=== PATIENT | female | born 1995 | race African-American/Black ===

== ENCOUNTER 2017-02-09 16:37 | Emergency (ER) | payer OTHER ==
[~2017-02-09] VITALS: Ht 157.5 cm; Wt 50.0 kg
[2017-02-09 16:42] VITALS: BP 137/85; PULSE 84; RESP 20; TEMP 97; O2SAT 98
--- NOTE | 2017-02-09 17:44 | PD ---
HPI . right arm laceration Chief Complaint: Skin Problem Time Seen by Provider: 17:20 Travel History International Travel<30 days: No Contact w/Intl Traveler<30days: No Traveled to known affect area: No History of Present Illness HPI 21-year-old female here with right arm laceration. Patient hit a glass window sustaining 2 lacerations to her right forearm. She tells me she is up-to-date on her tetanus shot. She has no other issues. [facility] Past Medical History Medical History: Denies Significant Hx Tetanus Vaccination: Unknown Influenza Vaccination: No ?: Not Past Surgical History Surgical History: No Previous Surgery Social History Alcohol Use: No Tobacco Use: No Substance Use: Yes (MARIJUANA) Allergies-Medications (Allergen,Severity, Reaction): Coded Allergies: Sulfa (Sulfonamide Antibiotics) (Verified Allergy, Severe, HIVES, 02/09/17) Reported Meds & Prescriptions Reported Meds & Active Scripts Active No Active Prescriptions or Reported Medications Review of Systems General / Constitutional: No: Fever Eyes: No: Visual changes HENT: No: Headaches Cardiovascular: No: Chest Pain or Discomfort Respiratory: No: Shortness of Breath Gastrointestinal: No: Abdominal Pain Genitourinary: No: Dysuria Musculoskeletal: No: Pain Skin: Positive Other (laceration right forearm ), No Rash Neurologic: No: Weakness Psychiatric: No: Depression Endocrine: No: Polydipsia Hematologic/Lymphatic: No: Easy Bruising Physical Exam Narrative GENERAL: AAO x 3, no acute distress, Well-nourished, well-developed patient. SKIN: Warm and dry. No visible rashes or bruising. right forearm two lacerations approximately 6.5 cm to the anterior surface and 5 cm to the ventral surface HEAD: Normocephalic and atraumatic. EYES: No scleral icterus. No injection or drainage. ENT: No nasal drainage noted. Mucous membranes pink. Airway patent. NECK: Supple, trachea midline. No JVD. CARDIOVASCULAR: Regular rate and rhythm without murmurs, gallops, or rubs. RESPIRATORY: Breath sounds equal bilaterally. No accessory muscle use. No rhonchi or rales. GASTROINTESTINAL: visual inspection normal EXTREMITIES: No cyanosis or edema. all digits of right hand move normally BACK: Nontender without obvious deformity. No CVA tenderness. NEURO: CN II-12 intact, dry pan feeder strength normal b/l, UE and LE 5/5, no focal deficits PSYCH: AAO x 3, normal affect. Data Data Last Documented VS Vital Signs Date Time Temp Pulse Resp B/P (MAP) Pulse Ox O2 Delivery O2 Flow Rate FiO2 02/09/17 16:42 97.0 84 20 137/85 (102) 98 Room Air Orders Orders Forearm (2vws) (02/09/17 17:08) Lidocaine 1% Inj (50 Ml) (Xylocaine 1% I (02/09/17 17:45) [facility] Medical Decision Making Medical Screen Exam Complete: Yes Emergency Medical Condition: Yes Medical Record Reviewed: Yes Differential Diagnosis forearm laceration, possible foreign body, less likely vessel injury Narrative Course 21 yr old female here with two lacerations to the right forearm. She hit a glass window. Possibility of fb with window type. Xray ordered. Last Impressions Radius/Ulna X-Ray 02/09/17 1708 Signed Impressions: Service Date/Time: Thursday, February 09, 2017 17:38 - CONCLUSION: Negative for radiopaque foreign body. Glass can be radiolucent. Oswaldo Murray MD FACR Joanna KILGORE, performed laceration repair. Please refer to her note for procedure details. Patient tolerated without incident. one laceration required 11 on the anterior forearm dorsum laceration with 7 sutures Diagnosis Primary Impression: Forearm laceration Qualified Codes: S51.811A - Laceration without foreign body of right forearm, initial encounter Patient Instructions: General Instructions Additional Instructions: Keep area clean and dry. Use gauze as we discussed and change 1-2 times a day. Watch for signs of infection: fever, redness, swelling, warmth, pus or drainage , red streaks around the cut, and increased pain from the area. If you received a tetanus shot, you may experience tenderness at the injection site. This is normal. You have a total of 18 sutures between the two lacerations. The sutures will need to be removed in 10-14 days. Please follow up with your primary care provider or return to the emergency department for removal. Med/Other Pt SpecificInfo: No Change to Meds Scripts No Active Prescriptions or Reported Meds Disposition: 01 DISCHARGE HOME Condition: Stable Laxmi Mckeon Feb 09, 2017 17:43
[2017-02-09] MEDS ORDERED: LIDOCAINE HCL 1% 50 ML VIAL INFIL ONE (17:45)
--- NOTE | 2017-02-09 17:52 | RADRPT ---
EXAM DATE/TIME: 02/09/2017 17:38 [facility] COMPARISON: No previous studies available for comparison. INDICATIONS : Right forearm laceration, possible foreign body, glass. MEDICAL HISTORY : None. SURGICAL HISTORY : None. ENCOUNTER: Initial ACUITY: 1 day PAIN SCORE: 10/10 LOCATION: Right middle anterior forearm. FINDINGS: Two view examination of the right forearm demonstrates no evidence of fracture or dislocation. Bony mineralization is normal. The soft tissue structures are intact. CONCLUSION: Negative for radiopaque foreign body. Glass can be radiolucent. Oswaldo Murray MD FACR on February 09, 2017 at 17:50 Board Certified Radiologist. This report was verified electronically.
--- NOTE | 2017-02-09 19:17 | PD ---
Physical Exam Date Seen by Provider: Feb 09, 2017 Time Seen by Provider: 18:00 Data Data Last Documented VS Vital Signs Date Time Temp Pulse Resp B/P (MAP) Pulse Ox O2 Delivery O2 Flow Rate FiO2 02/09/17 18:49 02/09/17 16:42 97.0 84 20 98 Room Air Orders Orders Forearm (2vws) (02/09/17 17:08) Lidocaine 1% Inj (50 Ml) (Xylocaine 1% I (02/09/17 17:45) [facility] Medical Record Reviewed: Yes Supervised Visit with MELISSA: Yes Narrative Course I was asked by provider to repair 2 lacerations on both the ventral and dorsal portion the right forearm that she sustained after punching a window. Patient is a 21-year-old female alert and oriented. No acute distress noted. Patient is very anxious about having her lacerations repaired. However she is cooperative. Lacerations were repaired. Please see my procedural narrative for details. PANDA Gil retains care of this patient please see her note for details and disposition. Procedures Procedure Narrative LACERATION LOCATION: Distal ventral right arm LENGTH: 6.5 cm NUMBER OF STITCHES/NADIR: 11 sutures REPAIR: The area of the laceration was prepped with Betadine and sterilely draped. The laceration was infiltrated with 1% lidocaine. The wound was copiously irrigated and explored without evidence of foreign body, tendon injury or neurovascular injury. The wound was closed using 4.0 Ethilon. This was a single layer repair. A sterile dressing was applied. The patient was advised to keep the dressing clean and dry. Patient tolerated the procedure well. LACERATION LOCATION: Distal dorsal right arm LENGTH: 5 cm NUMBER OF STITCHES/NADIR: 7 sutures REPAIR: The area of the laceration was prepped with Betadine and sterilely draped. The laceration was infiltrated with 1% lidocaine. The wound was copiously irrigated and explored without evidence of foreign body, tendon injury or neurovascular injury. The wound was closed using 4. 0 Ethilon. This was a single layer repair. A sterile dressing was applied. The patient was advised to keep the dressing clean and dry. Patient tolerated the procedure well. Diagnosis Primary Impression: Forearm laceration Qualified Codes: S51.811A - Laceration without foreign body of right forearm, initial encounter Patient Instructions: General Instructions Departure Forms: Tests/Procedures Additional Instruction: Keep area clean and dry. Use gauze as we discussed and change 1-2 times a day. Watch for signs of infection: fever, redness, swelling, warmth, pus or drainage , red streaks around the cut, and increased pain from the area. If you received a tetanus shot, you may experience tenderness at the injection site. This is normal. You have a total of 18 sutures between the two lacerations. The sutures will need to be removed in 10-14 days. Please follow up with your primary care provider or return to the emergency department for removal. Scripts No Active Prescriptions or Reported Meds Disposition: 01 DISCHARGE HOME Condition: Stable Joanna Raza Feb 09, 2017 19:17
== END 2017-02-09 18:50 | disposition home or self-care (01) ==
LOC: EDTENT 16:37
DX: S51.811A Laceration without foreign body of right forearm, initial encounter (principal); W25.XXXA Contact with sharp glass, initial encounter
CPT/HCPCS: 12004; 73090